=== PATIENT | female | born 1950 | race Caucasian/White ===

== ENCOUNTER 2023-03-09 11:36 | Inpatient (IN) | payer OTHER ==
[2023-03-09 12:35] LABS: #Basophils 0.1 thou/uL (0.0-0.2); #Monocytes 0.7 thou/uL (0.11-0.59); #Neutrophils 7.8 thou/uL (1.40-6.50); %Basophils 0.8 % (0.0-1.0); %Eosinophils 0.1 % (0.0-10.0); %Lymphocytes 18.6 % (21.0-51.0); %Monocytes 6.9 % (0.0-10.0); %Neutrophils 73.1 % (42.0-75.0); Hematocrit 41.4 % (36.0-47.0); Hemoglobin 12.9 g/dL (12.0-16.0); Mean Corpuscular HGB CONC 31.2 g/dL (32.0-36.0); Mean Corpuscular Hemoglobin 31.6 pg (27.0-31.0); Mean Corpuscular Volume 101.5 fl (78.0-98.0); Mean Platelet Volume 9.9 fL (7.4-10.4); Platelet Count 229 10x3/uL (130-400); RBC Distribution Width 13.8 % (11.5-14.5); Red Blood Cell (RBC) Count 4.08 mill/uL (4.20-5.40); White Blood Cell (WBC) Count 10.7 10x3/uL (4.8-10.8)
[2023-03-09 12:46] LABS: Bacteria/HPF None Seen HPF (None Seen); Bilirubin Negative (Negative); Blood, Urine Trace (Negative); CAUTI Indications for Culture Alt mental st,lethar; Clarity Clear (Clear); Glucose, Urine (Dipstick) Normal (Negative); Ketone, Urine Negative (Negative); Leukocyte Negative Leu/uL (Negative); Nitrite Negative (Negative); Protein, Urine (Dipstick) 20 mg/dL (Neg-Trace); RBC/HPF None Seen HPF (0-3); Specific Gravity, Urine 1.017 (1.002-1.036); Squamous Epithelial None Seen HPF (0-3); Urobilinogen Normal mg/dL (Less than 2); WBC/HPF 0-3 HPF (0-3); pH, Urine 6.5 (5.0-9.0)
[2023-03-09 12:49] LABS: Urine Culture Reflex No No
[2023-03-09 13:08] LABS: ALT (SGPT) 23 U/L (8-55); AST (SGOT) 52 U/L (5-34); Albumin 4.7 g/dL (3.4-4.8); Alkaline Phosphatase 56 U/L (40-110); Anion Gap 23 mmol/L (10-20); BUN (Urea Nitrogen) 24 mg/dL (9.8-20.1); Bilirubin, Total 0.6 mg/dL (0.2-1.2); Calc. Creatinine Clearance 0 mL/min (70-130); Calcium 9.5 mg/dL (7.8-10.44); Carbon Dioxide 19 mmol/L (23-31); Chloride 103 mmol/L (98-107); Estimated GFR 36; Globulin 3.5 g/dL (2.4-3.5); Glucose 104 mg/dL (83-110); Potassium 4.6 mmol/L (3.5-5.1); Protein, Total 8.2 g/dL (5.8-8.1); Sodium 140 mmol/L (136-145)
[2023-03-09 13:09] LABS: Troponin I 0.023 ng/mL (< 0.028)
[2023-03-09] MEDS ORDERED: Lidocaine 2% PF 5 ML VIAL ONE (13:52)
[2023-03-09] MEDS ORDERED: Boostrix 0.5 ML (Tdap) VIAL (>/=7 yrs of age) ONE (14:34)
[2023-03-09] MEDS ORDERED: Nystatin Powder 15 GM BOT TOP PRN (16:16)
[2023-03-09] MEDS ORDERED: Glucagon 1 MG/ML KIT IM PRN (16:19)
[2023-03-09] MEDS ORDERED: HumaLOG 300 UNITS/3 ML VIAL SC PRN (16:19)
[2023-03-09] MEDS ORDERED: Dextrose 50% Abboject 50 ML SYRINGE SLOW IVP PRN (16:19)
[2023-03-09] MEDS ORDERED: Dextrose 5% in Water 1,000 ML IV PRN (16:19)
[2023-03-09 17:00] VITALS: BMI 31.0
[2023-03-09 17:29] LABS: Hemoglobin A1c 6.4 % (4.0-6.0)
[2023-03-09 17:46] LABS: Troponin I 0.029 ng/mL (< 0.028)
[2023-03-09 17:49] LABS: Amphetamine Not Detected (NotDetected); Barbiturates Screen Not Detected (NotDetected); Benzodiazepine Screen Not Detected (NotDetected); Cocaine Metabolite Screen Not Detected (NotDetected); Methadone Not Detected (NotDetected); Methamphetamine Not Detected (NotDetected); Opiate Screen Not Detected (NotDetected); Oxycodone Screen Not Detected (NotDetected); Phencyclidine (PCP) Not Detected (NotDetected); THC/Cannabinoid Screen Not Detected (NotDetected); Tricyclic Screen Not Detected (NotDetected)
[2023-03-09 17:49] LABS: Lactic Acid 1.9 mmol/L (0.5-2.2)
[2023-03-09] MEDS: Lactated Ringer's 1,000 ML IV SCH (17:57)
[2023-03-09 18:21] LABS: Cardiac Risk 10.1 (Less than 4.5)
[2023-03-09 21:15] LABS: Troponin I 0.028 ng/mL (< 0.028)
[2023-03-10] MEDS ORDERED: HumaLOG 300 UNITS/3 ML VIAL SC PRN (00:47)
[2023-03-10] MEDS: Lactated Ringer's 1,000 ML IV SCH ×3 (03:33→21:27)
[2023-03-10] MEDS ORDERED: Levothyroxine Sodium 50 MCG TAB PO SCH (06:00)
[2023-03-10 06:34] LABS: #Basophils 0.1 thou/uL (0.0-0.2); #Eosinphils 0.1 thou/uL (0.0-0.7); #Monocytes 0.4 thou/uL (0.11-0.59); #Neutrophils 4.3 thou/uL (1.40-6.50); %Basophils 1.1 % (0.0-1.0); %Eosinophils 1.9 % (0.0-10.0); %Lymphocytes 33.8 % (21.0-51.0); %Monocytes 5.5 % (0.0-10.0); %Neutrophils 57.3 % (42.0-75.0); Hematocrit 38.4 % (36.0-47.0); Hemoglobin 12.3 g/dL (12.0-16.0); Mean Corpuscular Hemoglobin 31.9 pg (27.0-31.0); Mean Corpuscular Volume 99.5 fl (78.0-98.0); Platelet Count 192 10x3/uL (130-400); RBC Distribution Width 13.9 % (11.5-14.5); Red Blood Cell (RBC) Count 3.86 mill/uL (4.20-5.40); White Blood Cell (WBC) Count 7.5 10x3/uL (4.8-10.8)
[2023-03-10 07:02] LABS: Anion Gap 19 mmol/L (10-20); BUN (Urea Nitrogen) 18 mg/dL (9.8-20.1); CK (CPK) 1754 U/L (29-168); Calc. Creatinine Clearance 60 mL/min (70-130); Calcium 8.2 mg/dL (7.8-10.44); Carbon Dioxide 21 mmol/L (23-31); Chloride 101 mmol/L (98-107); Estimated GFR 51; Glucose 80 mg/dL (83-110); Potassium 3.7 mmol/L (3.5-5.1); Sodium 137 mmol/L (136-145)
[2023-03-11] MEDS: Levothyroxine Sodium 125 MCG TAB PO SCH (06:01)
[2023-03-11] MEDS: Lactated Ringer's 1,000 ML IV SCH ×2 (08:12→14:03)
[2023-03-11 08:37] LABS: Anion Gap 17 mmol/L (10-20); BUN (Urea Nitrogen) 17 mg/dL (9.8-20.1); CK (CPK) 1242 U/L (29-168); Calc. Creatinine Clearance 67 mL/min (70-130); Calcium 8.5 mg/dL (7.8-10.44); Carbon Dioxide 23 mmol/L (23-31); Chloride 98 mmol/L (98-107); Estimated GFR 59; Glucose 88 mg/dL (83-110); Potassium 3.9 mmol/L (3.5-5.1); Sodium 134 mmol/L (136-145)
[2023-03-11] MEDS: guaiFENesin ER 600 MG TAB PO SCH ×2 (09:44→21:09)
[2023-03-11 14:57] LABS: SARS-CoV-2 NAA Rapid Test Not Detected (NotDetected)
[2023-03-12] MEDS: Lactated Ringer's 1,000 ML IV SCH ×3 (02:09→14:37)
[2023-03-12] MEDS: Levothyroxine Sodium 125 MCG TAB PO SCH (05:45)
[2023-03-12 07:53] LABS: Anion Gap 18 mmol/L (10-20); BUN (Urea Nitrogen) 19 mg/dL (9.8-20.1); CK (CPK) 1001 U/L (29-168); Calc. Creatinine Clearance 58 mL/min (70-130); Calcium 8.7 mg/dL (7.8-10.44); Carbon Dioxide 25 mmol/L (23-31); Chloride 96 mmol/L (98-107); Estimated GFR 50; Glucose 118 mg/dL (83-110); Potassium 4.2 mmol/L (3.5-5.1); Sodium 135 mmol/L (136-145)
[2023-03-12] MEDS: Loratadine 10 MG TAB PO SCH (08:23)
[2023-03-12] MEDS: guaiFENesin ER 600 MG TAB PO SCH ×2 (08:23→20:25)
[2023-03-12 09:31] LABS: #Monocytes 0.6 thou/uL (0.11-0.59); #Neutrophils 8.7 thou/uL (1.40-6.50); %Basophils 0.4 % (0.0-1.0); %Eosinophils 0.3 % (0.0-10.0); %Lymphocytes 15.3 % (21.0-51.0); %Monocytes 5.8 % (0.0-10.0); %Neutrophils 77.9 % (42.0-75.0); Hematocrit 41.2 % (36.0-47.0); Hemoglobin 13.6 g/dL (12.0-16.0); Mean Corpuscular Hemoglobin 31.9 pg (27.0-31.0); Mean Corpuscular Volume 96.7 fl (78.0-98.0); Mean Platelet Volume 10.4 fL (7.4-10.4); Platelet Count 220 10x3/uL (130-400); RBC Distribution Width 13.7 % (11.5-14.5); Red Blood Cell (RBC) Count 4.26 mill/uL (4.20-5.40); White Blood Cell (WBC) Count 11.1 10x3/uL (4.8-10.8)
[2023-03-12 12:48] LABS: Bacteria/HPF 3+ HPF (None Seen); Bilirubin Negative (Negative); Blood, Urine 3+ (Negative); Clarity Turbid (Clear); Glucose, Urine (Dipstick) Normal (Negative); Ketone, Urine Negative (Negative); Leukocyte 500 Leu/uL (Negative); Nitrite Negative (Negative); Protein, Urine (Dipstick) 100 mg/dL (Neg-Trace); RBC/HPF 21-50 HPF (0-3); Specific Gravity, Urine 1.011 (1.002-1.036); Squamous Epithelial 0-3 HPF (0-3); Urobilinogen Normal mg/dL (Less than 2); WBC/HPF Greater than 50 HPF (0-3)
[2023-03-12] MEDS: cefTRIAXone\\ROCEPHIN 1 GM in Sodium Chloride 0.9% 100 ML IVPB SCH (14:37)
[2023-03-12] MEDS: Acetaminophen 500 MG TAB PO PRN (20:25)
[2023-03-13] MEDS: Lactated Ringer's 1,000 ML IV SCH ×4 (00:38→16:17)
[2023-03-13] MEDS: Levothyroxine Sodium 125 MCG TAB PO SCH (06:26)
[2023-03-13 06:28] LABS: #Basophils 0.1 thou/uL (0.0-0.2); #Eosinphils 0.1 thou/uL (0.0-0.7); #Monocytes 0.6 thou/uL (0.11-0.59); #Neutrophils 7.1 thou/uL (1.40-6.50); %Basophils 0.6 % (0.0-1.0); %Eosinophils 1.2 % (0.0-10.0); %Lymphocytes 23.5 % (21.0-51.0); %Neutrophils 68.4 % (42.0-75.0); Hematocrit 37.5 % (36.0-47.0); Hemoglobin 12.1 g/dL (12.0-16.0); Mean Corpuscular HGB CONC 32.3 g/dL (32.0-36.0); Mean Corpuscular Hemoglobin 31.8 pg (27.0-31.0); Mean Corpuscular Volume 98.7 fl (78.0-98.0); Mean Platelet Volume 10.2 fL (7.4-10.4); Platelet Count 177 10x3/uL (130-400); RBC Distribution Width 13.8 % (11.5-14.5); White Blood Cell (WBC) Count 10.4 10x3/uL (4.8-10.8)
[2023-03-13 06:56] LABS: Anion Gap 18 mmol/L (10-20); BUN (Urea Nitrogen) 16 mg/dL (9.8-20.1); CK (CPK) 583 U/L (29-168); Calc. Creatinine Clearance 60 mL/min (70-130); Calcium 8.5 mg/dL (7.8-10.44); Carbon Dioxide 20 mmol/L (23-31); Chloride 100 mmol/L (98-107); Estimated GFR 52; Glucose 96 mg/dL (83-110); Potassium 4.2 mmol/L (3.5-5.1); Sodium 134 mmol/L (136-145)
[2023-03-13] MEDS: guaiFENesin ER 600 MG TAB PO SCH ×2 (09:51→20:00)
[2023-03-13] MEDS: Loratadine 10 MG TAB PO SCH (09:51)
[2023-03-13] MEDS: cefTRIAXone\\ROCEPHIN 1 GM in Sodium Chloride 0.9% 100 ML IVPB SCH (13:38)
[2023-03-13] MEDS: Acetaminophen 500 MG TAB PO PRN (20:00)
[2023-03-14] MEDS: Lactated Ringer's 1,000 ML IV SCH ×3 (00:50→19:11)
[2023-03-14] MEDS: Levothyroxine Sodium 125 MCG TAB PO SCH (06:32)
[2023-03-14] MEDS: guaiFENesin ER 600 MG TAB PO SCH ×2 (07:44→21:47)
[2023-03-14] MEDS: Loratadine 10 MG TAB PO SCH (07:44)
[2023-03-14 07:50] LABS: Anion Gap 17 mmol/L (10-20); BUN (Urea Nitrogen) 18 mg/dL (9.8-20.1); CK (CPK) 400 U/L (29-168); Calc. Creatinine Clearance 60 mL/min (70-130); Calcium 8.5 mg/dL (7.8-10.44); Carbon Dioxide 25 mmol/L (23-31); Chloride 99 mmol/L (98-107); Estimated GFR 51; Glucose 80 mg/dL (83-110); Potassium 4.1 mmol/L (3.5-5.1); Sodium 137 mmol/L (136-145)
[2023-03-14] MEDS: Acetaminophen 500 MG TAB PO PRN (15:01)
[2023-03-15] MEDS: Lactated Ringer's 1,000 ML IV SCH ×3 (05:36→15:23)
[2023-03-15] MEDS: Levothyroxine Sodium 125 MCG TAB PO SCH (06:15)
[2023-03-15] MEDS: guaiFENesin ER 600 MG TAB PO SCH ×2 (09:05→21:06)
[2023-03-15] MEDS: Loratadine 10 MG TAB PO SCH (09:05)
[2023-03-15] MEDS: Polyethylene Glycol 3350 17 GM Packet PO SCH (11:41)
[2023-03-15] MEDS ORDERED: Polyethylene Glycol 3350 17 GM Packet PO SCH (11:45)
[2023-03-15] MEDS: Acetaminophen 500 MG TAB PO PRN (21:06)
[2023-03-16] MEDS: Lactated Ringer's 1,000 ML IV SCH ×3 (01:43→17:55)
[2023-03-16] MEDS: Levothyroxine Sodium 125 MCG TAB PO SCH (06:10)
[2023-03-16] MEDS: Loratadine 10 MG TAB PO SCH (07:59)
[2023-03-16] MEDS: guaiFENesin ER 600 MG TAB PO SCH ×2 (07:59→20:34)
[2023-03-16] MEDS: Polyethylene Glycol 3350 17 GM Packet PO SCH (07:59)
[2023-03-16] MEDS: Acetaminophen 500 MG TAB PO PRN (20:35)
[2023-03-17] MEDS: Lactated Ringer's 1,000 ML IV SCH ×4 (03:14→22:50)
[2023-03-17] MEDS: Levothyroxine Sodium 125 MCG TAB PO SCH (06:01)
[2023-03-17] MEDS: Polyethylene Glycol 3350 17 GM Packet PO SCH (08:22)
[2023-03-17] MEDS: Loratadine 10 MG TAB PO SCH (08:23)
[2023-03-17] MEDS: guaiFENesin ER 600 MG TAB PO SCH ×2 (08:23→20:08)
[2023-03-17] MEDS: Losartan 25 MG TAB PO SCH (10:26)
[2023-03-17] MEDS: Acetaminophen 500 MG TAB PO PRN (20:08)
[2023-03-18] MEDS: Lactated Ringer's 1,000 ML IV SCH (03:54)
[2023-03-18] MEDS: Levothyroxine Sodium 125 MCG TAB PO SCH (05:54)
[2023-03-18 06:03] LABS: Anion Gap 13 mmol/L (10-20); BUN (Urea Nitrogen) 20 mg/dL (9.8-20.1); Calc. Creatinine Clearance 62 mL/min (70-130); Carbon Dioxide 29 mmol/L (23-31); Chloride 98 mmol/L (98-107); Estimated GFR 54; Glucose 84 mg/dL (83-110); Potassium 4.2 mmol/L (3.5-5.1); Sodium 136 mmol/L (136-145)
[2023-03-18] MEDS: Polyethylene Glycol 3350 17 GM Packet PO SCH (08:26)
[2023-03-18] MEDS: Losartan 25 MG TAB PO SCH (08:27)
[2023-03-18] MEDS: Loratadine 10 MG TAB PO SCH (08:27)
[2023-03-18] MEDS: guaiFENesin ER 600 MG TAB PO SCH ×2 (08:27→20:47)
[2023-03-18] MEDS: Acetaminophen 500 MG TAB PO PRN (20:47)
[2023-03-19] MEDS: Levothyroxine Sodium 125 MCG TAB PO SCH (05:50)
[2023-03-19] MEDS: guaiFENesin ER 600 MG TAB PO SCH ×2 (09:02→20:55)
[2023-03-19] MEDS: Losartan 25 MG TAB PO SCH (09:02)
[2023-03-19] MEDS: Loratadine 10 MG TAB PO SCH (09:03)
[2023-03-19] MEDS: Polyethylene Glycol 3350 17 GM Packet PO SCH (09:03)
[2023-03-19] MEDS: Acetaminophen 500 MG TAB PO PRN (20:55)
[2023-03-20 05:46] LABS: Anion Gap 17 mmol/L (10-20); BUN (Urea Nitrogen) 23 mg/dL (9.8-20.1); Calc. Creatinine Clearance 60 mL/min (70-130); Calcium 8.8 mg/dL (7.8-10.44); Carbon Dioxide 25 mmol/L (23-31); Chloride 99 mmol/L (98-107); Estimated GFR 51; Glucose 91 mg/dL (83-110); Potassium 4.2 mmol/L (3.5-5.1); Sodium 137 mmol/L (136-145)
[2023-03-20] MEDS: Levothyroxine Sodium 125 MCG TAB PO SCH (05:52)
[2023-03-20] MEDS: Losartan 25 MG TAB PO SCH (09:01)
[2023-03-20] MEDS: Polyethylene Glycol 3350 17 GM Packet PO SCH (09:02)
[2023-03-20] MEDS: Loratadine 10 MG TAB PO SCH (09:02)
[2023-03-20] MEDS: guaiFENesin ER 600 MG TAB PO SCH ×2 (09:02→23:05)
[2023-03-20 09:25] LABS: #Basophils 0.1 thou/uL (0.0-0.2); #Eosinphils 0.2 thou/uL (0.0-0.7); #Monocytes 0.5 thou/uL (0.11-0.59); %Basophils 1.2 % (0.0-1.0); %Eosinophils 2.4 % (0.0-10.0); %Lymphocytes 48.7 % (21.0-51.0); %Monocytes 6.6 % (0.0-10.0); %Neutrophils 40.4 % (42.0-75.0); Hemoglobin 12.2 g/dL (12.0-16.0); Mean Corpuscular HGB CONC 32.1 g/dL (32.0-36.0); Mean Corpuscular Hemoglobin 31.4 pg (27.0-31.0); Mean Corpuscular Volume 97.9 fl (78.0-98.0); Mean Platelet Volume 9.6 fL (7.4-10.4); Platelet Count 272 10x3/uL (130-400); RBC Distribution Width 13.6 % (11.5-14.5); Red Blood Cell (RBC) Count 3.88 mill/uL (4.20-5.40); White Blood Cell (WBC) Count 7.5 10x3/uL (4.8-10.8)
[2023-03-20] MEDS ORDERED: Senokot S 8.6-50 MG TAB PO SCH (16:00)
[2023-03-20] MEDS ORDERED: Docusate 100 MG CAP PO SCH (21:00)
[2023-03-20] MEDS: Senokot S 8.6-50 MG TAB PO SCH (23:05)
[2023-03-21] MEDS: Levothyroxine Sodium 125 MCG TAB PO SCH (06:07)
[2023-03-21] MEDS: Polyethylene Glycol 3350 17 GM Packet PO SCH (08:50)
[2023-03-21] MEDS: Losartan 25 MG TAB PO SCH (08:51)
[2023-03-21] MEDS: guaiFENesin ER 600 MG TAB PO SCH ×2 (08:51→23:06)
[2023-03-21] MEDS: Senokot S 8.6-50 MG TAB PO SCH ×2 (08:52→23:06)
[2023-03-21] MEDS: Loratadine 10 MG TAB PO SCH (08:52)
[2023-03-21] MEDS: Acetaminophen 500 MG TAB PO PRN (23:06)
[2023-03-22] MEDS: Levothyroxine Sodium 125 MCG TAB PO SCH (07:15)
[2023-03-22] MEDS: Polyethylene Glycol 3350 17 GM Packet PO SCH (08:35)
[2023-03-22] MEDS: guaiFENesin ER 600 MG TAB PO SCH ×2 (08:35→21:53)
[2023-03-22] MEDS: Senokot S 8.6-50 MG TAB PO SCH ×2 (08:35→21:53)
[2023-03-22] MEDS: Loratadine 10 MG TAB PO SCH (08:35)
[2023-03-22] MEDS: Metamucil PACK PO SCH (08:35)
[2023-03-22] MEDS: Losartan 25 MG TAB PO SCH (08:35)
[2023-03-22] MEDS: Acetaminophen 500 MG TAB PO PRN (21:53)
[2023-03-22] MEDS: Rosuvastatin 20 MG TAB PO SCH (21:53)
[2023-03-23] MEDS: Levothyroxine Sodium 125 MCG TAB PO SCH (05:50)
[2023-03-23] MEDS: Senokot S 8.6-50 MG TAB PO SCH ×2 (10:12→20:12)
[2023-03-23] MEDS: guaiFENesin ER 600 MG TAB PO SCH ×2 (10:12→20:12)
[2023-03-23] MEDS: Polyethylene Glycol 3350 17 GM Packet PO SCH (10:13)
[2023-03-23] MEDS: Losartan 25 MG TAB PO SCH (10:13)
[2023-03-23] MEDS: Metamucil PACK PO SCH (10:13)
[2023-03-23] MEDS: Loratadine 10 MG TAB PO SCH (10:13)
[2023-03-23] MEDS: Rosuvastatin 20 MG TAB PO SCH (20:12)
[2023-03-23] MEDS: Acetaminophen 500 MG TAB PO PRN (20:12)
[2023-03-24] MEDS: Levothyroxine Sodium 125 MCG TAB PO SCH (05:44)
[2023-03-24] MEDS ORDERED: guaiFENesin ER 600 MG TAB PO PRN (07:28)
[2023-03-24] MEDS: Senokot S 8.6-50 MG TAB PO SCH ×2 (09:05→20:30)
[2023-03-24] MEDS: Losartan 25 MG TAB PO SCH (09:05)
[2023-03-24] MEDS: Metamucil PACK PO SCH (09:05)
[2023-03-24] MEDS: Polyethylene Glycol 3350 17 GM Packet PO SCH (09:05)
[2023-03-24] MEDS: Loratadine 10 MG TAB PO SCH (09:05)
[2023-03-24] MEDS: Acetaminophen 500 MG TAB PO PRN ×2 (11:57→20:30)
[2023-03-24] MEDS: Rosuvastatin 20 MG TAB PO SCH (20:30)
[2023-03-25] MEDS: Levothyroxine Sodium 125 MCG TAB PO SCH (05:46)
[2023-03-25 05:58] LABS: ALT (SGPT) 16 U/L (8-55); AST (SGOT) 29 U/L (5-34); Albumin 4.2 g/dL (3.4-4.8); Alkaline Phosphatase 57 U/L (40-110); Anion Gap 14 mmol/L (10-20); BUN (Urea Nitrogen) 29 mg/dL (9.8-20.1); Bilirubin, Total 0.4 mg/dL (0.2-1.2); Calc. Creatinine Clearance 51 mL/min (70-130); Calcium 8.9 mg/dL (7.8-10.44); Carbon Dioxide 26 mmol/L (23-31); Chloride 99 mmol/L (98-107); Estimated GFR 43; Globulin 3.1 g/dL (2.4-3.5); Glucose 91 mg/dL (83-110); Potassium 4.2 mmol/L (3.5-5.1); Protein, Total 7.3 g/dL (5.8-8.1); Sodium 135 mmol/L (136-145)
[2023-03-25] MEDS ORDERED: Lactated Ringer's 500 ML IV SCH (08:00)
[2023-03-25] MEDS: Losartan 25 MG TAB PO SCH ×3 (08:02→14:19)
[2023-03-25] MEDS ORDERED: Senokot S 8.6-50 MG TAB PO PRN (08:33)
[2023-03-25] MEDS: Loratadine 10 MG TAB PO SCH (08:41)
[2023-03-25] MEDS: Metamucil PACK PO SCH (08:41)
[2023-03-25] MEDS: Polyethylene Glycol 3350 17 GM Packet PO SCH (08:41)
[2023-03-25 09:05] LABS: #Basophils 0.1 thou/uL (0.0-0.2); #Eosinphils 0.1 thou/uL (0.0-0.7); #Monocytes 0.4 thou/uL (0.11-0.59); #Neutrophils 2.8 thou/uL (1.40-6.50); %Basophils 1.1 % (0.0-1.0); %Eosinophils 1.8 % (0.0-10.0); %Lymphocytes 46.8 % (21.0-51.0); %Monocytes 5.6 % (0.0-10.0); %Neutrophils 44.4 % (42.0-75.0); Hematocrit 40.3 % (36.0-47.0); Hemoglobin 13.1 g/dL (12.0-16.0); Mean Corpuscular HGB CONC 32.5 g/dL (32.0-36.0); Mean Corpuscular Volume 98.5 fl (78.0-98.0); Mean Platelet Volume 9.4 fL (7.4-10.4); Platelet Count 255 10x3/uL (130-400); RBC Distribution Width 13.8 % (11.5-14.5); Red Blood Cell (RBC) Count 4.09 mill/uL (4.20-5.40); White Blood Cell (WBC) Count 6.3 10x3/uL (4.8-10.8)
[2023-03-25] MEDS: Acetaminophen 500 MG TAB PO PRN (14:19)
[2023-03-25] MEDS: Rosuvastatin 20 MG TAB PO SCH (19:56)
[2023-03-26] MEDS: Levothyroxine Sodium 125 MCG TAB PO SCH (05:57)
[2023-03-26 07:17] LABS: Anion Gap 14 mmol/L (10-20); BUN (Urea Nitrogen) 32 mg/dL (9.8-20.1); Calc. Creatinine Clearance 58 mL/min (70-130); Calcium 8.8 mg/dL (7.8-10.44); Carbon Dioxide 28 mmol/L (23-31); Chloride 100 mmol/L (98-107); Estimated GFR 50; Glucose 88 mg/dL (83-110); Potassium 4.6 mmol/L (3.5-5.1); Sodium 137 mmol/L (136-145)
[2023-03-26] MEDS: Loratadine 10 MG TAB PO SCH (08:50)
[2023-03-26] MEDS: Losartan 25 MG TAB PO SCH (08:50)
[2023-03-26] MEDS: Metamucil PACK PO SCH (08:51)
[2023-03-26] MEDS: Polyethylene Glycol 3350 17 GM Packet PO SCH (08:51)
[2023-03-26] MEDS: Acetaminophen 500 MG TAB PO PRN (19:48)
[2023-03-26] MEDS: Rosuvastatin 20 MG TAB PO SCH (19:48)
[2023-03-27] MEDS: Levothyroxine Sodium 125 MCG TAB PO SCH (05:42)
[2023-03-27] MEDS: Polyethylene Glycol 3350 17 GM Packet PO SCH (08:47)
[2023-03-27] MEDS: Metamucil PACK PO SCH (08:47)
[2023-03-27] MEDS: Loratadine 10 MG TAB PO SCH (08:47)
[2023-03-27] MEDS: Losartan 25 MG TAB PO SCH (08:47)
[2023-03-27] MEDS: Rosuvastatin 20 MG TAB PO SCH (20:17)
[2023-03-27] MEDS: Acetaminophen 500 MG TAB PO PRN (20:18)
[2023-03-28] MEDS: Levothyroxine Sodium 125 MCG TAB PO SCH (05:52)
[2023-03-28] MEDS: Loratadine 10 MG TAB PO SCH (08:57)
[2023-03-28] MEDS: Polyethylene Glycol 3350 17 GM Packet PO SCH (08:57)
[2023-03-28] MEDS: Losartan 25 MG TAB PO SCH (08:57)
[2023-03-28] MEDS: Metamucil PACK PO SCH (08:57)
[2023-03-28] MEDS: Rosuvastatin 20 MG TAB PO SCH (20:34)
[2023-03-28] MEDS: Acetaminophen 500 MG TAB PO PRN (20:35)
[2023-03-29] MEDS: Levothyroxine Sodium 125 MCG TAB PO SCH (05:30)
[2023-03-29] MEDS: Losartan 25 MG TAB PO SCH (09:01)
[2023-03-29] MEDS: Loratadine 10 MG TAB PO SCH (09:01)
[2023-03-29] MEDS: Metamucil PACK PO SCH (09:03)
[2023-03-29] MEDS: Polyethylene Glycol 3350 17 GM Packet PO SCH (09:03)
[2023-03-29 10:42] VITALS: BP 110/61; TEMP 98.8
== END 2023-03-29 10:52 | disposition home health service (06) | DRG 56 ==
LOC: ERS 11:36 → T4-A 14:00
PROVIDERS: ADMIT Student in an Organized Health Care Education/Training Program; ATTEND Student in an Organized Health Care Education/Training Program
PROC: 0HQ1XZZ Repair Face Skin, External Approach (ICD-10-PCS; principal; 2023-03-09)
DX: G30.9 Alzheimer's disease, unspecified (principal); G93.41 Metabolic encephalopathy; E87.20 Acidosis, unspecified; N39.0 Urinary tract infection, site not specified; I50.20 Unspecified systolic (congestive) heart failure; R82.1 Myoglobinuria; F02.B11 Dementia in other diseases classified elsewhere, moderate, with agitation; M62.82 Rhabdomyolysis; R53.81 Other malaise; W18.30XA Fall on same level, unspecified, initial encounter; E11.9 Type 2 diabetes mellitus without complications; R74.01 Elevation of levels of liver transaminase levels; L30.4 Erythema intertrigo; Z11.52 Encounter for screening for COVID-19; E78.00 Pure hypercholesterolemia, unspecified; S01.111A Laceration without foreign body of right eyelid and periocular area, initial encounter; L89.892 Pressure ulcer of other site, stage 2; E03.9 Hypothyroidism, unspecified; B96.20 Unspecified Escherichia coli [E. coli] as the cause of diseases classified elsewhere; I11.0 Hypertensive heart disease with heart failure; K59.00 Constipation, unspecified; Y92.049 Unspecified place in boarding-house as the place of occurrence of the external cause; Z90.710 Acquired absence of both cervix and uterus; Z87.891 Personal history of nicotine dependence; Z79.899 Other long term (current) drug therapy; Z86.73 Personal history of transient ischemic attack (TIA), and cerebral infarction without residual deficits; R00.1 Bradycardia, unspecified; I34.0 Nonrheumatic mitral (valve) insufficiency; S09.90XA Unspecified injury of head, initial encounter
CPT/HCPCS: 36415; 36416; 51701; 70450; 70551; 71046; 72170; 72192; 80048; 80053; 80061; 80306; 81001; 82550; 83036; 83605; 83880; 84145; 84439; 84443; 84484; 85025; 87077; 87086; 87186; 87633; 90471; 90715; 93005; 93010; 93306; J0696; J2001; J3490; J7120